=== PATIENT | male | born 1950 | race Caucasian/White ===

== ENCOUNTER 2024-05-17 08:25 | Inpatient (IN) | payer MEDICARE, MEDICAID ==
[2024-05-17] VITALS (58 sets, daily range): BP systolic 111–197; BP diastolic 59–150
[~2024-05-17] VITALS: Ht 182.9 cm; Wt 100.1 kg
[~2024-05-17 08:25] MED LIST: AMLODIPINE BESY10 MG PO; LISINOP/HCTZ1 TA1 PO; LISINOPRIL10 MG PO; VENTOLIN HFA IN; ZITHROMAX250 MG PO
[2024-05-17] MEDS ORDERED: LABETALOL HCL 100 MG/20 ML VIAL IV ONE (08:50)
[2024-05-17 08:59] LABS: ALBUMIN 4.3 g/dL (3.2-5.0); BILIRUBIN, TOTAL 1.1 mg/dL (0.2-1.3); POTASSIUM 4.7 mmol/l (3.5-5.1); TOTAL PROTEIN 7.9 g/dL (6.3-8.2)
[2024-05-17 09:08] LABS: BASO% 0.5 % (0-3); EOS% 4.7 % (0-8); HEMATOCRIT 46.9 % (39.0-50.0); HEMOGLOBIN 15.3 g/dl (14.0-18.0); IMMATURE GRANULOCYTES 0.3 % (0.0-5.0); LYMPH% 14.4 % (15-41); MEAN CELL VOLUME 89.2 fL CALC (80.0-100.0); MEAN CORPUSCULAR HGB 29.1 pG CALC (26.0-32.0); MEAN CORPUSCULAR HGB CONC 32.6 g/dL CAL (32.0-36.0); MONO% 7.2 % (2-13); NEUT# 7.16 thou/uL (1.82-7.42); NEUT% 72.9 % (42-76); RED BLOOD COUNT 5.26 mill/uL (4.70-6.10); RED CELL DISTRI WIDTH 14.8 % (11.5-15.5)
[2024-05-17] MEDS ORDERED: FUROSEMIDE 40 MG/4 ML SDV IV ONE (09:30)
[2024-05-17] MEDS ORDERED: cefTRIAXone SODIUM 2 GM in SODIUM CHLORIDE 0.9% 100 ML IV ONE (11:00)
[2024-05-17] MEDS ORDERED: AZITHROMYCIN 250 MG/TAB PO ONE (11:00)
[2024-05-17] MEDS ORDERED: ACETAMINOPHEN 325 MG/TAB PO PRN (11:20)
[2024-05-17] MEDS ORDERED: MAGNESIUM HYDROXIDE 30 ML UDC PO PRN (11:20)
[2024-05-17] MEDS ORDERED: DOXYCYCLINE HYCLATE 100 MG in SODIUM CHLORIDE 0.9% 100 ML IV SCH (11:30)
[2024-05-17] MEDS ORDERED: Levofloxacin 750 mg Premix 150 ML IV SCH (11:30)
[2024-05-17] MEDS ORDERED: LORazepam 2 MG/ML IV PRN (11:55)
[2024-05-17] MEDS ORDERED: chlordiazePOXIDE HCL 25 MG CAP PO PRN (11:55)
[2024-05-17] MEDS ORDERED: LISINOPRIL 20 MG/TAB PO SCH (13:00)
[2024-05-17] MEDS ORDERED: LABETALOL HCL 20 MG/ 4 ML CARTRG IV PRN (13:25)
[2024-05-17] MEDS ORDERED: FUROSEMIDE 40 MG/4 ML SDV IV SCH (17:00)
[2024-05-17] MEDS ORDERED: ENOXAPARIN SODIUM 40 MG/0.4 ML SYR SC SCH (21:00)
[2024-05-18] VITALS (50 sets, daily range): BP systolic 99–135; BP diastolic 53–83
[2024-05-18 04:50] LABS: BASO% 0.4 % (0-3); EOS% 5.5 % (0-8); HEMATOCRIT 44.6 % (39.0-50.0); HEMOGLOBIN 14.8 g/dl (14.0-18.0); IMMATURE GRANULOCYTES 0.6 % (0.0-5.0); LYMPH% 17.8 % (15-41); MEAN CELL VOLUME 87.3 fL CALC (80.0-100.0); MEAN CORPUSCULAR HGB CONC 33.2 g/dL CAL (32.0-36.0); MONO% 7.9 % (2-13); NEUT# 5.55 thou/uL (1.82-7.42); NEUT% 67.8 % (42-76); RED BLOOD COUNT 5.11 mill/uL (4.70-6.10); RED CELL DISTRI WIDTH 14.4 % (11.5-15.5)
[2024-05-18 05:26] LABS: ALBUMIN 3.6 g/dL (3.2-5.0); BILIRUBIN, TOTAL 0.8 mg/dL (0.2-1.3); MAGNESIUM 1.9 mg/dL (1.6-2.3); TOTAL PROTEIN 6.5 g/dL (6.3-8.2)
[2024-05-18 05:27] LABS: POTASSIUM 3.6 mmol/l (3.5-5.1)
[2024-05-18] MEDS ORDERED: METOPROLOL SUCCINATE 25 MG/TAB-TOPROL XL PO SCH (09:00)
[2024-05-18] MEDS ORDERED: cefTRIAXone SODIUM 2 GM in SODIUM CHLORIDE 0.9% 100 ML IV SCH (09:00)
[2024-05-18] MEDS ORDERED: MULTIPLE VITAMIN TABLET PO SCH (09:00)
[2024-05-18] MEDS ORDERED: THIAMINE HCL 100 MG TAB PO SCH (09:00)
[2024-05-18] MEDS ORDERED: FOLIC ACID 1 MG/TAB PO SCH (09:00)
[2024-05-18] MEDS ORDERED: AZITHROMYCIN 500 MG in SODIUM CHLORIDE 0.9% 250 ML IV SCH (09:30)
[2024-05-18] MEDS ORDERED: LISINOPRIL20 M1 PO (12:52)
[2024-05-18] MEDS ORDERED: LASIX 20 MG TAB20 MG PO (12:53)
[2024-05-18] MEDS ORDERED: OMNICEF300 MG PO (12:54)
[2024-05-18] MEDS ORDERED: ZITHROMAX250 MG PO (12:54)
[2024-05-18] MEDS ORDERED: KLOR-CON M1010 MEQ PO (12:55)
== END 2024-05-18 14:05 | DRG 291 ==
LOC: ED 08:25 → ED-I 10:47 → ED 11:05 → ICU 11:06
PROVIDERS: Family Medicine; ADMIT Student in an Organized Health Care Education/Training Program; ATTEND Student in an Organized Health Care Education/Training Program
DX: I11.0 Hypertensive heart disease with heart failure (principal); J18.9 Pneumonia, unspecified organism; I16.1 Hypertensive emergency; I50.1 Left ventricular failure, unspecified; F10.20 Alcohol dependence, uncomplicated; T46.4X6A Underdosing of angiotensin-converting-enzyme inhibitors, initial encounter; Z91.128 Patient's intentional underdosing of medication regimen for other reason; Z91.199 Patient's noncompliance with other medical treatment and regimen due to unspecified reason; Z20.822 Contact with and (suspected) exposure to COVID-19
CPT/HCPCS: J1650; Q9967